=== PATIENT | male | born 1965 | race African-American/Black ===

== ENCOUNTER 2016-12-20 00:50 | Emergency (ER) | payer MEDICAID ==
[~2016-12-20] VITALS: Ht 195.6 cm; Wt 93.0 kg
[2016-12-20 04:35] VITALS: BP 129/79
== END 2016-12-20 04:38 | disposition home or self-care (01) ==
LOC: ER 00:50
DX: M79.674 Pain in right toe(s) (principal); F17.200 Nicotine dependence, unspecified, uncomplicated; F12.10 Cannabis abuse, uncomplicated; I10 Essential (primary) hypertension
CPT/HCPCS: 99283

== ENCOUNTER 2021-05-28 09:04 | Inpatient (IN) | payer MEDICAID, OTHER ==
[~2021-05-28] VITALS: Ht 193 cm; Wt 91.7 kg
[~2021-05-28 09:04] MED LIST: OMEP20CA14 PO
[2021-05-28 10:06] LABS: CHLORIDE 109 mEq/L (98-107)
[2021-05-28 10:07] LABS: CLARITY URINE CLEAR (CLEAR); COLOR URINE YELLOW (YELLOW); KETONES URINE NEGATIVE (NEGATIVE); LEUKOCYTE ESTERASE URINE NEGATIVE (NEGATIVE); NITRITE URINE NEGATIVE (NEGATIVE); OCCULT BLOOD URINE NEGATIVE (NEGATIVE); PH URINE 6.5 (4.5-8.0); PROTEIN URINE 1+ (NEGATIVE)
[2021-05-28 10:09] LABS: BASOPHILS % 0.7 % (0.0-2.0); EOSINOPHILS % 0.9 % (0.0-5.0); HEMATOCRIT. 40.3 % (42.0-52.0); HEMOGLOBIN. 13.9 g/dL (14.0-18.0); MEAN CORPUSCULAR HEMOGLOBIN 28.3 pg (28.0-32.0); MEAN CORPUSCULAR VOLUME 81.9 fL (80.0-94.0); MEAN PLATELET VOLUME 8.9 fl (7.4-10.4); NEUTROPHILS % 71.4 % (40.0-76.0); PLATELET 255 x1000/uL (130-400); RED BLOOD CELL COUNT 4.91 mill/uL (4.7-6.1); RED CELL DISTRIBUTION WIDTH 16.4 % (11.6-14.6)
[2021-05-28] MEDS ORDERED: ASPIRIN 325MG EC TABLET PO NR (11:00)
[2021-05-28] MEDS: FUROSEMIDE 40MG TABLET PO SCH (17:15)
[2021-05-28 17:36] LABS: PROTHROMBIN TIME 10.9 sec (9.6-11.0)
[2021-05-28] MEDS: ENOXAPARIN 80MG/0.8ML SYR SUBCUT SCH (18:20)
[2021-05-28] MEDS ORDERED: IPRATROPIUM/ALBUTEROL 0.5-3(2.5)MG/3ML NEB NEB PRN (19:15)
[2021-05-28] MEDS ORDERED: LORAZEPAM 0.5MG TABLET PO PRN (19:15)
[2021-05-28] MEDS ORDERED: GUAIFENESIN 200MG/10ML SUGAR FREE UDC PO PRN (19:15)
[2021-05-28] MEDS ORDERED: MORPHINE SULFATE 2 MG/ML CPJ (NOT FOR IM USE) IV PRN (19:15)
[2021-05-28] MEDS ORDERED: ACETAMINOPHEN 325MG TABLET PO PRN (19:15)
[2021-05-28] MEDS: PANTOPRAZOLE SODIUM 40 MG/VIAL IV SCH (19:50)
[2021-05-28 21:30] VITALS: BP 146/83
[2021-05-28 22:00] VITALS: BP 146/83
[2021-05-28] MEDS: CARVEDILOL 3.125 MG TABLET PO SCH (22:33)
[2021-05-29] VITALS: BP 156/93
[2021-05-29] MEDS ORDERED: BENA5TAB6 PO (01:54)
[2021-05-29 04:00] VITALS: BP 141/90
[2021-05-29] MEDS: FUROSEMIDE 40MG TABLET PO SCH ×2 (06:38→17:41)
[2021-05-29] MEDS: ENOXAPARIN 80MG/0.8ML SYR SUBCUT SCH (06:38)
[2021-05-29 06:59] LABS: *AMPHETAMINES SCREEN URINE NEGATIVE (NEGATIVE); *BENZODIAZEPINES SCREEN URINE NEGATIVE (NEGATIVE); *COCAINE SCREEN URINE NEGATIVE (NEGATIVE); METHADONE URINE SCREEN NEGATIVE (NEGATIVE); OPIATES URINE SCREEN NEGATIVE (NEGATIVE)
[2021-05-29 07:00] LABS: CANNABINOID URINE SCREEN PRESUMTIVE POSITIVE (NEGATIVE); PHENCYCLIDINE URINE SCREEN NEGATIVE (NEGATIVE)
[2021-05-29 07:34] VITALS: BP 150/88
[2021-05-29] MEDS: PANTOPRAZOLE SODIUM 40 MG/VIAL IV SCH ×2 (08:51→16:24)
[2021-05-29] MEDS: ASPIRIN 81MG TABLET PO SCH (08:52)
[2021-05-29] MEDS: CARVEDILOL 3.125 MG TABLET PO SCH (08:52)
[2021-05-29] MEDS ORDERED: LOSARTAN POTASSIUM 25 MG TABLET PO SCH (09:00)
[2021-05-29] MEDS ORDERED: NITROGLYCERIN OINT 1GM/INCH UDPKT TD PRN (09:45)
[2021-05-29 11:48] VITALS: BP 148/95
[2021-05-29 16:19] VITALS: BP 144/94
[2021-05-29] MEDS ORDERED: ENOXAPARIN 100MG/ML SYR SUBCUT SCH (18:00)
[2021-05-29 18:19] LABS: BASOPHILS % 0.5 % (0.0-2.0); EOSINOPHILS % 0.6 % (0.0-5.0); HEMATOCRIT. 41.5 % (42.0-52.0); HEMOGLOBIN. 14.5 g/dL (14.0-18.0); LYMPHOCYTES % 24.1 % (20.0-50.0); MEAN CORPUSCULAR HEMOGLOBIN 28.4 pg (28.0-32.0); MEAN CORPUSCULAR VOLUME 81.3 fL (80.0-94.0); MONOCYTES % 8.7 % (2.0-8.0); NEUTROPHILS % 66.1 % (40.0-76.0); PLATELET 252 x1000/uL (130-400); RED CELL DISTRIBUTION WIDTH 16.4 % (11.6-14.6)
[2021-05-29 18:56] LABS: CHLORIDE 103 mEq/L (98-107)
[2021-05-29 20:00] VITALS: BP 148/88
[2021-05-29] MEDS: CARVEDILOL 6.25 MG TABLET PO SCH (20:37)
[2021-05-30] VITALS (10 sets, daily range): BP systolic 133–151; BP diastolic 76–92
[2021-05-30 06:58] LABS: BASOPHILS % 0.3 % (0.0-2.0); EOSINOPHILS % 0.5 % (0.0-5.0); HEMATOCRIT. 41.9 % (42.0-52.0); HEMOGLOBIN. 14.6 g/dL (14.0-18.0); LYMPHOCYTES % 22.9 % (20.0-50.0); MEAN CORPUSCULAR HEMOGLOBIN 28.1 pg (28.0-32.0); MEAN CORPUSCULAR VOLUME 80.9 fL (80.0-94.0); MEAN PLATELET VOLUME 8.8 fl (7.4-10.4); MONOCYTES % 10.6 % (2.0-8.0); NEUTROPHILS % 65.7 % (40.0-76.0); PLATELET 274 x1000/uL (130-400); RED BLOOD CELL COUNT 5.18 mill/uL (4.7-6.1)
[2021-05-30] MEDS: FUROSEMIDE 40MG TABLET PO SCH ×2 (07:15→17:39)
[2021-05-30 08:15] LABS: CHLORIDE 105 mEq/L (98-107)
[2021-05-30] MEDS: ASPIRIN 81MG TABLET PO SCH (08:42)
[2021-05-30] MEDS: CARVEDILOL 6.25 MG TABLET PO SCH (08:42)
[2021-05-30] MEDS ORDERED: LOSARTAN POTASSIUM 25 MG TABLET PO SCH (09:00)
[2021-05-30] MEDS: PANTOPRAZOLE SODIUM 40 MG/VIAL IV SCH ×2 (09:00→17:00)
[2021-05-30] MEDS ORDERED: SODIUM CHLORIDE 0.45% 1,000 ML IV ONE (10:00)
[2021-05-30] MEDS ORDERED: IODIXANOL 320MG/ML 100 ML BOTTLE IV ONE (10:29)
[2021-05-30] MEDS ORDERED: LIDOCAINE HCL 1% 30ML VIAL (10MG/ML) ONE (10:29)
[2021-05-30] MEDS ORDERED: MIDAZOLAM HCL 2 MG/2 ML VIAL ONE (10:50)
[2021-05-30] MEDS ORDERED: FENTANYL CITRATE/PF 50MCG/ML 2ML VIAL ONE (10:51)
[2021-05-30] MEDS ORDERED: ACETAMINOPHEN 325MG TABLET PO PRN ×3 (11:30→13:45)
[2021-05-30] MEDS ORDERED: ATROPINE SULFATE 1MG/10ML SYR IV PRN (11:30)
[2021-05-30] MEDS ORDERED: HYDRALAZINE 20MG/ML VIAL ONE (11:34)
[2021-05-30] MEDS ORDERED: ONDANSETRON HCL 4MG/2ML INJ ONE ×2 (11:45→11:49)
[2021-05-30] MEDS ORDERED: ATROPINE SULFATE 0.1MG/ML 10ML DISP.SYRIN ONE (11:47)
[2021-05-30] MEDS ORDERED: NITROGLYCERIN 0.4MG TABLET SL SL PRN (13:45)
[2021-05-30] MEDS ORDERED: NITROGLYCERIN OINT 1GM/INCH UDPKT TD SCH (14:00)
[2021-05-30] MEDS ORDERED: CARVEDILOL 3.125 MG TABLET PO SCH (21:00)
[2021-05-30] MEDS: ATORVASTATIN CALCIUM 10MG TABLET PO SCH (21:08)
[2021-05-30] MEDS: CARVEDILOL 3.125 MG TABLET PO SCH (21:08)
[2021-05-30 22:03] LABS: *BARBITURATES SCREEN URINE NEGATIVE (NEGATIVE)
[2021-05-31] VITALS (12 sets, daily range): BP systolic 115–153; BP diastolic 70–94
[2021-05-31] MEDS: ALLOPURINOL 300 MG TABLET PO SCH ×2 (05:34→21:59)
[2021-05-31] MEDS: FUROSEMIDE 40MG TABLET PO SCH ×2 (06:47→18:04)
[2021-05-31 07:20] LABS: BASOPHILS % 0.2 % (0.0-2.0); EOSINOPHILS % 0.5 % (0.0-5.0); HEMATOCRIT. 42.3 % (42.0-52.0); HEMOGLOBIN. 14.5 g/dL (14.0-18.0); LYMPHOCYTES % 16.8 % (20.0-50.0); MEAN CORPUSCULAR VOLUME 81.7 fL (80.0-94.0); MEAN PLATELET VOLUME 8.9 fl (7.4-10.4); MONOCYTES % 12.6 % (2.0-8.0); NEUTROPHILS % 69.9 % (40.0-76.0); PLATELET 276 x1000/uL (130-400); RED BLOOD CELL COUNT 5.18 mill/uL (4.7-6.1); RED CELL DISTRIBUTION WIDTH 16.4 % (11.6-14.6)
[2021-05-31] MEDS: PANTOPRAZOLE SODIUM 40 MG/VIAL IV SCH ×2 (09:00→17:00)
[2021-05-31] MEDS ORDERED: LOSARTAN POTASSIUM 25 MG TABLET PO SCH (09:00)
[2021-05-31 09:44] LABS: CHLORIDE 106 mEq/L (98-107)
[2021-05-31 09:51] LABS: LDL CHOLESTEROL 132 mg/dL (5-100)
[2021-05-31 09:52] LABS: HDL CHOLESTEROL 36 mg/dL (40-59)
[2021-05-31] MEDS: ASPIRIN 81MG TABLET PO SCH (09:54)
[2021-05-31] MEDS: CARVEDILOL 3.125 MG TABLET PO SCH ×2 (09:55→21:59)
[2021-05-31] MEDS ORDERED: DOCUSATE SODIUM 100MG CAPSULE PO SCH (21:00)
[2021-05-31] MEDS ORDERED: CHLORHEXIDINE GLUCONATE 4% EXTERNAL USE TOP SCH (21:00)
[2021-05-31] MEDS ORDERED: ASCORBIC ACID 500 MG TABLET PO SCH (21:00)
[2021-05-31] MEDS ORDERED: BISACODYL 10MG SUPP PR PRN (21:00)
[2021-05-31] MEDS: ATORVASTATIN CALCIUM 10MG TABLET PO SCH (21:59)
[2021-06-01] VITALS (92 sets, daily range): BP systolic 75–200; BP diastolic 33–97
[2021-06-01] MEDS ORDERED: BLOOD SUGAR DIAGNOSTIC STRIP TEST NR (04:00)
[2021-06-01] MEDS: ALLOPURINOL 300 MG TABLET PO SCH (04:59)
[2021-06-01] MEDS ORDERED: SKIN ADHESIVE 0.7 GM EA TOP ONE (05:34)
[2021-06-01] MEDS ORDERED: THROMBIN (BOVINE) 5000 UNITS/VIAL TOP ONE ×2 (05:34→05:35)
[2021-06-01] MEDS ORDERED: POLYMYXIN B SULFATE 500000 UNITS/VIAL ONE (05:35)
[2021-06-01] MEDS ORDERED: HEPARIN 1000 UNITS/ML 10ML ONE ×2 (05:42→08:43)
[2021-06-01] MEDS ORDERED: CHLORHEXIDINE GLUCONATE 4% EXTERNAL USE TOP SCH (06:00)
[2021-06-01] MEDS ORDERED: INSULIN REGULAR 100U/100ML PMX 100 ML IV NR (06:00)
[2021-06-01] MEDS ORDERED: EPINEPHRINE 5 MG in DEXT 5% WATER 245 ML IV NR (06:00)
[2021-06-01] MEDS ORDERED: DOBUTAMINE 250 MG in DEXT 5% WATER 230 ML IV NR (06:00)
[2021-06-01] MEDS ORDERED: NICARDIPINE 40MG/200ML PREMIX 200 ML IV NR (06:00)
[2021-06-01] MEDS ORDERED: DEL NIDO ELECTROLYTE-S(PH 7.4) 1,000 ML IV NR ×2 (06:00)
[2021-06-01] MEDS ORDERED: NOREPINEPHRINE 8 MG in DEXT 5% WATER 242 ML IV NR (06:00)
[2021-06-01] MEDS ORDERED: DOPAMINE HCL 400 MG in DEXT 5% WATER 240 ML IV NR (06:00)
[2021-06-01] MEDS ORDERED: PAPAVERINE HCL 180MG in SODIUM CHLORIDE 0.9% 24ML IV NR (06:00)
[2021-06-01] MEDS ORDERED: CEFAZOLIN 2,000 MG in DEXT 5% WATER 100 ML IV NR (07:00)
[2021-06-01] MEDS: FUROSEMIDE 40MG TABLET PO SCH ×2 (07:15→17:40)
[2021-06-01] MEDS ORDERED: DEXAMETHASONE 4MG/ML 1ML VIAL ONE (07:21)
[2021-06-01] MEDS ORDERED: ROCURONIUM BROMIDE 10MG/ML VIAL 5ML IV ONE ×2 (07:21→08:42)
[2021-06-01 07:32] LABS: BASOPHILS % 0.5 % (0.0-2.0); EOSINOPHILS % 0.8 % (0.0-5.0); HEMATOCRIT. 44.5 % (42.0-52.0); HEMOGLOBIN. 14.8 g/dL (14.0-18.0); LYMPHOCYTES % 23.5 % (20.0-50.0); MEAN CORPUSCULAR HEMOGLOBIN 27.5 pg (28.0-32.0); MEAN CORPUSCULAR VOLUME 82.8 fL (80.0-94.0); MEAN PLATELET VOLUME 8.7 fl (7.4-10.4); MONOCYTES % 12.8 % (2.0-8.0); NEUTROPHILS % 62.4 % (40.0-76.0); PLATELET 249 x1000/uL (130-400); RED BLOOD CELL COUNT 5.38 mill/uL (4.7-6.1)
[2021-06-01 07:36] LABS: CHLORIDE 106 mEq/L (98-107)
[2021-06-01] MEDS ORDERED: CALCIUM CHLORIDE 1GM/10ML SYR IV ONE ×2 (07:58→08:55)
[2021-06-01] MEDS ORDERED: INSULIN REGULAR (DRIP) 100 UNITS in SODIUM CHLORIDE 0.9% 100 ML IV SCH (08:00)
[2021-06-01] MEDS ORDERED: KCL 10MEQ/50ML PREMIX 150 ML IV PRN (08:00)
[2021-06-01] MEDS ORDERED: DEXTROSE 50% WATER 50ML SYRINGE IV PRN ×2 (08:00)
[2021-06-01] MEDS ORDERED: KCL 10MEQ/50ML PREMIX 200 ML IV PRN (08:00)
[2021-06-01] MEDS ORDERED: HYDROMORPHONE HCL/PF 2MG/ML (OR) ONE (08:07)
[2021-06-01] MEDS ORDERED: INSULIN REGULAR 100U/100ML PMX 100 ML IV SCH (08:15)
[2021-06-01] MEDS ORDERED: MAGNESIUM SULFATE 1G IN DEXT 5% 100ML PREMIX IV ONE (08:27)
[2021-06-01] MEDS ORDERED: POTASSIUM CHLORIDE 10MEQ IN WATER 50ML PREMIX IV ONE (08:27)
[2021-06-01] MEDS ORDERED: ONDANSETRON HCL 4MG/2ML INJ ONE (08:27)
[2021-06-01] MEDS ORDERED: KETOROLAC 30MG/ML VIAL ONE ×2 (08:27→10:09)
[2021-06-01] MEDS ORDERED: MAGNESIUM SULFATE 5GM/10ML VIAL IV ONE (08:38)
[2021-06-01] MEDS ORDERED: HEPARIN 10,000 UNITS/ML VIAL ONE (08:38)
[2021-06-01] MEDS ORDERED: POTASSIUM CHLORIDE 40MEQ/20ML INJ IV ONE (08:38)
[2021-06-01] MEDS ORDERED: DEXMEDETOMIDINE 400 MCG/100 ML 100 ML IV ONE (08:50)
[2021-06-01] MEDS ORDERED: SODIUM BICARBONATE 8.4% 1 MEQ/ML 50ML SYR IV ONE ×2 (08:56→10:06)
[2021-06-01] MEDS ORDERED: PROTAMINE SULFATE 10MG/ML VIAL 25ML IV ONE (09:28)
[2021-06-01] MEDS ORDERED: NEOSTIGMINE METHYLSULFATE 1MG/ML 10 ML VIAL ONE (10:08)
[2021-06-01] MEDS ORDERED: GLYCOPYRROLATE 0.2 MG/ML 2ML VIAL ONE (10:08)
[2021-06-01] MEDS ORDERED: ONDANSETRON HCL 4MG/2ML INJ IV PRN (10:15)
[2021-06-01] MEDS ORDERED: ALBUMIN HUMAN 12.5G/250ML (5%) IV PRN (10:15)
[2021-06-01] MEDS ORDERED: CALCIUM CHLORIDE 3,000 MG in DEXT 5% WATER 250 ML IV PRN (10:15)
[2021-06-01] MEDS ORDERED: ALBUMIN HUMAN 25GM/100ML (25%) IV PRN (10:15)
[2021-06-01] MEDS ORDERED: CALCIUM CHLORIDE 5,000 MG in DEXT 5% WATER 500 ML IV PRN (10:15)
[2021-06-01] MEDS ORDERED: DOPAMINE 400MG/250ML PREMIX 250 ML IV SCH (10:15)
[2021-06-01] MEDS ORDERED: OXYCODONE HCL/ACETAMINOPHEN 5/325MG TABLET PO PRN (10:15)
[2021-06-01] MEDS ORDERED: ACETAMINOPHEN 325MG TABLET PO PRN (10:15)
[2021-06-01] MEDS ORDERED: SODIUM CHLORIDE 0.9% 500 ML IV PRN (10:15)
[2021-06-01] MEDS ORDERED: MAGNESIUM 2 G PREMIX 50 ML IV PRN (10:15)
[2021-06-01] MEDS ORDERED: MAGNESIUM SULFATE 3 GM in DEXT 5% WATER 100 ML IV PRN (10:15)
[2021-06-01] MEDS: MAGNESIUM HYDROXIDE 400MG/5ML 30ML UDC PO SCH ×3 (10:30→21:12)
[2021-06-01] MEDS ORDERED: HYDRALAZINE 20MG/ML VIAL IV SCH (10:30)
[2021-06-01 10:36] LABS: BG BASE EXCESS -2.2 mmol/L (-2.0-2.0); BG CARBOXYHEMOGLOBIN 0.5 % (0.5-1.5); BG DEOXYHEMOGLOBIN 4.1 % (0.0-5.0); BG FRACTION INSPIRED OXYGEN 100; BG METHEMOGLOBIN 0.2 % (0.0-1.5); BG OXYGEN SATURATION 95.9 % (92.0-98.5); BG OXYHEMOGLOBIN 95.2 % (94.0-97.0); BG PCO2 46.3 mmHg (35.0-45.0); BG PH 7.332 (7.350-7.450); BG PO2 86.1 mmHg (75.0-100.0); BG SAMPLE SITE ALINE; BG TOTAL HEMOGLOBIN 14.6 g/dL (12.0-18.0); BG VENT MODE MASK - NRB
[2021-06-01 11:04] LABS: CHLORIDE 114 mEq/L (98-107)
[2021-06-01 11:07] LABS: HEMATOCRIT. 41.3 % (42.0-52.0); HEMOGLOBIN. 13.7 g/dL (14.0-18.0); MEAN CORPUSCULAR HEMOGLOBIN 27.3 pg (28.0-32.0); MEAN CORPUSCULAR VOLUME 82.1 fL (80.0-94.0); MEAN PLATELET VOLUME 8.8 fl (7.4-10.4); PLATELET 293 x1000/uL (130-400); RED BLOOD CELL COUNT 5.03 mill/uL (4.7-6.1); RED CELL DISTRIBUTION WIDTH 16.1 % (11.6-14.6)
[2021-06-01 11:12] LABS: INR 1.1; PROTHROMBIN TIME 11.4 sec (9.6-11.0)
[2021-06-01] MEDS: BLOOD SUGAR DIAGNOSTIC STRIP TEST SCH ×13 (11:38→23:00)
[2021-06-01] MEDS: KETOROLAC 30MG/ML VIAL IV PRN ×2 (11:43→21:13)
[2021-06-01] MEDS: IPRATROPIUM/ALBUTEROL 0.5-3(2.5)MG/3ML NEB HHN SCH ×3 (11:47→20:03)
[2021-06-01] MEDS ORDERED: DEXT 5%/0.45% NACL 1000ML 1,000 ML IV SCH (12:00)
[2021-06-01] MEDS: BACITRACIN 15GM TUBE TOP SCH ×2 (12:00→16:22)
[2021-06-01] MEDS: KCL 10MEQ/50ML PREMIX 100 ML IV PRN ×2 (12:20→13:27)
[2021-06-01] MEDS: FAMOTIDINE 20MG/2ML VIAL IV SCH ×2 (12:28→21:12)
[2021-06-01] MEDS: CEFAZOLIN 1000MG PREMIX 50 ML IV SCH ×2 (12:29→20:40)
[2021-06-01] MEDS: ONDANSETRON HCL 4MG/2ML INJ IV PRN ×2 (13:48→17:39)
[2021-06-01 16:06] LABS: PLATELET ESTIMATE NORMAL
[2021-06-01] MEDS ORDERED: DOCUSATE SODIUM 100MG CAPSULE PO SCH (17:00)
[2021-06-01 17:03] LABS: HEMATOCRIT. 37.8 % (42.0-52.0); HEMOGLOBIN. 12.8 g/dL (14.0-18.0); MEAN CORPUSCULAR HEMOGLOBIN 27.7 pg (28.0-32.0); MEAN CORPUSCULAR VOLUME 81.8 fL (80.0-94.0); MEAN PLATELET VOLUME 8.7 fl (7.4-10.4); PLATELET 293 x1000/uL (130-400); RED BLOOD CELL COUNT 4.62 mill/uL (4.7-6.1); RED CELL DISTRIBUTION WIDTH 16.4 % (11.6-14.6)
[2021-06-01 17:15] LABS: PROTHROMBIN TIME 10.7 sec (9.6-11.0)
[2021-06-01 17:22] LABS: CHLORIDE 109 mEq/L (98-107)
[2021-06-01] MEDS: MAGNESIUM 1 G PREMIX 100 ML IV PRN (17:33)
[2021-06-01] MEDS: OXYCODONE HCL/ACETAMINOPHEN 5/325MG TABLET PO PRN (17:39)
[2021-06-01] MEDS: ASPIRIN 81MG TABLET PO SCH (17:39)
[2021-06-01] MEDS: CLOPIDOGREL 75MG TABLET PO SCH (17:40)
[2021-06-01 17:46] LABS: PLATELET ESTIMATE NORMAL
[2021-06-01] MEDS: ATORVASTATIN CALCIUM 40MG TABLET PO SCH (20:28)
[2021-06-01] MEDS: CARVEDILOL 6.25 MG TABLET PO SCH (20:28)
[2021-06-01] MEDS: MORPHINE SULFATE 2 MG/ML CPJ (NOT FOR IM USE) IV PRN (20:28)
[2021-06-02] VITALS (62 sets, daily range): BP systolic 72–283; BP diastolic 34–177
[2021-06-02] MEDS: IPRATROPIUM/ALBUTEROL 0.5-3(2.5)MG/3ML NEB HHN SCH ×6 (00:05→21:27)
[2021-06-02 00:27] LABS: HEMATOCRIT 33.8 % (42.0-52.0); HEMOGLOBIN 11.5 g/dL (14.0-18.0); MEAN CORPUSCULAR HEMOGLOBIN 28.1 pg (28.0-32.0); MEAN CORPUSCULAR VOLUME 82.3 fL (80.0-94.0); PLATELET 276 x1000/uL (130-400)
[2021-06-02 00:36] LABS: CHLORIDE 108 mEq/L (98-107)
[2021-06-02] MEDS: MAGNESIUM HYDROXIDE 400MG/5ML 30ML UDC PO SCH ×3 (00:49→09:43)
[2021-06-02] MEDS: OXYCODONE HCL/ACETAMINOPHEN 5/325MG TABLET PO PRN (00:50)
[2021-06-02] MEDS: KCL 10MEQ/50ML PREMIX 100 ML IV PRN ×2 (00:56→07:18)
[2021-06-02] MEDS: BLOOD SUGAR DIAGNOSTIC STRIP TEST SCH ×9 (01:00→08:05)
[2021-06-02] MEDS: MAGNESIUM 1 G PREMIX 100 ML IV PRN (01:02)
[2021-06-02] MEDS: MORPHINE SULFATE 2 MG/ML CPJ (NOT FOR IM USE) IV PRN ×4 (03:20→21:10)
[2021-06-02] MEDS: CEFAZOLIN 1000MG PREMIX 50 ML IV SCH ×2 (04:11→12:21)
[2021-06-02 06:15] LABS: HEMATOCRIT. 32.1 % (42.0-52.0); HEMOGLOBIN. 10.9 g/dL (14.0-18.0); MEAN CORPUSCULAR HEMOGLOBIN 27.6 pg (28.0-32.0); MEAN CORPUSCULAR VOLUME 81.7 fL (80.0-94.0); MEAN PLATELET VOLUME 9.1 fl (7.4-10.4); PLATELET 244 x1000/uL (130-400); RED BLOOD CELL COUNT 3.93 mill/uL (4.7-6.1); RED CELL DISTRIBUTION WIDTH 16.1 % (11.6-14.6)
[2021-06-02 06:30] LABS: CHLORIDE 106 mEq/L (98-107)
[2021-06-02] MEDS: FUROSEMIDE 40MG TABLET PO SCH (07:19)
[2021-06-02 08:12] LABS: PLATELET ESTIMATE NORMAL
[2021-06-02] MEDS ORDERED: DIPHENHYDRAMINE 25MG CAPSULE PO PRN (08:45)
[2021-06-02] MEDS ORDERED: TRAMADOL HCL/ACETAMINOPHEN 37.5/325MG TABLET PO PRN (08:45)
[2021-06-02] MEDS ORDERED: DIPHENHYDRAMINE 50MG CAPSULE PO PRN (08:49)
[2021-06-02] MEDS: BACITRACIN 15GM TUBE TOP SCH ×2 (09:00→16:36)
[2021-06-02] MEDS: CARVEDILOL 6.25 MG TABLET PO SCH ×2 (09:00→21:10)
[2021-06-02] MEDS ORDERED: LOSARTAN POTASSIUM 50 MG TABLET PO SCH (09:00)
[2021-06-02 09:32] LABS: BASOPHILS % 0.3 % (0.0-2.0); HEMATOCRIT. 36.1 % (42.0-52.0); HEMOGLOBIN. 12.1 g/dL (14.0-18.0); LYMPHOCYTES % 7.8 % (20.0-50.0); MEAN CORPUSCULAR HEMOGLOBIN 27.5 pg (28.0-32.0); MEAN CORPUSCULAR VOLUME 81.9 fL (80.0-94.0); MEAN PLATELET VOLUME 8.9 fl (7.4-10.4); MONOCYTES % 14.9 % (2.0-8.0); PLATELET 272 x1000/uL (130-400); RED BLOOD CELL COUNT 4.41 mill/uL (4.7-6.1); RED CELL DISTRIBUTION WIDTH 16.5 % (11.6-14.6)
[2021-06-02 09:41] LABS: CHLORIDE 106 mEq/L (98-107)
[2021-06-02] MEDS: FAMOTIDINE 20MG TABLET PO SCH ×2 (09:44→21:10)
[2021-06-02] MEDS: CLOPIDOGREL 75MG TABLET PO SCH (09:44)
[2021-06-02] MEDS: DOCUSATE SODIUM 250MG CAPSULE PO SCH ×2 (09:44→16:17)
[2021-06-02] MEDS: ASPIRIN 81MG TABLET PO SCH (09:44)
[2021-06-02] MEDS ORDERED: NALOXONE HCL 0.4MG/ML VIAL IV PRN (10:00)
[2021-06-02] MEDS: PIPERACILLIN/TAZOBACTAM 3.375G in DEXT 5% WATER 50ML IV SCH ×2 (16:32→22:16)
[2021-06-02] MEDS ORDERED: CLOPIDOGREL 75MG TABLET PO SCH (17:00)
[2021-06-02] MEDS ORDERED: PIPERACILLIN/TAZOBACTAM 3.375 G in DEXTROSE 5% WATER 50 ML IV SCH (18:00)
[2021-06-02] MEDS: ATORVASTATIN CALCIUM 40MG TABLET PO SCH (21:10)
[2021-06-03] VITALS (16 sets, daily range): BP systolic 100–147; BP diastolic 61–99
[2021-06-03] MEDS: IPRATROPIUM/ALBUTEROL 0.5-3(2.5)MG/3ML NEB HHN SCH ×5 (01:15→20:59)
[2021-06-03] MEDS: MORPHINE SULFATE 2 MG/ML CPJ (NOT FOR IM USE) IV PRN ×5 (01:16→20:11)
[2021-06-03] MEDS: PIPERACILLIN/TAZOBACTAM 3.375G in DEXT 5% WATER 50ML IV SCH ×3 (05:33→21:17)
[2021-06-03 06:20] LABS: CHLORIDE 106 mEq/L (98-107)
[2021-06-03 06:42] LABS: BASOPHILS % 0.1 % (0.0-2.0); HEMATOCRIT. 33.4 % (42.0-52.0); HEMOGLOBIN. 11.2 g/dL (14.0-18.0); LYMPHOCYTES % 8.2 % (20.0-50.0); MEAN CORPUSCULAR VOLUME 83.5 fL (80.0-94.0); MEAN PLATELET VOLUME 9.3 fl (7.4-10.4); NEUTROPHILS % 78.7 % (40.0-76.0); PLATELET 241 x1000/uL (130-400); RED CELL DISTRIBUTION WIDTH 16.8 % (11.6-14.6)
[2021-06-03] MEDS ORDERED: FUROSEMIDE 40MG/4ML VIAL IVP SCH (07:00)
[2021-06-03] MEDS: ASPIRIN 81MG TABLET PO SCH (08:48)
[2021-06-03] MEDS: DOCUSATE SODIUM 250MG CAPSULE PO SCH ×2 (08:48→17:00)
[2021-06-03] MEDS: CARVEDILOL 12.5MG TABLET PO SCH ×2 (08:50→20:10)
[2021-06-03] MEDS: CLOPIDOGREL 75MG TABLET PO SCH (08:50)
[2021-06-03] MEDS: BACITRACIN 15GM TUBE TOP SCH ×2 (08:50→17:00)
[2021-06-03] MEDS: FAMOTIDINE 20MG TABLET PO SCH ×2 (09:00→20:09)
[2021-06-03] MEDS ORDERED: LACTULOSE 20G/30ML UDC PO SCH (17:00)
[2021-06-03] MEDS: ATORVASTATIN CALCIUM 40MG TABLET PO SCH (20:09)
[2021-06-04] VITALS (12 sets, daily range): BP systolic 107–144; BP diastolic 65–91
[2021-06-04] MEDS: IPRATROPIUM/ALBUTEROL 0.5-3(2.5)MG/3ML NEB HHN SCH ×6 (04:00→20:09)
[2021-06-04] MEDS: PIPERACILLIN/TAZOBACTAM 3.375G in DEXT 5% WATER 50ML IV SCH ×3 (06:18→22:50)
[2021-06-04 07:26] LABS: CHLORIDE 107 mEq/L (98-107)
[2021-06-04 07:34] LABS: BASOPHILS % 0.2 % (0.0-2.0); EOSINOPHILS % 0.6 % (0.0-5.0); HEMOGLOBIN. 10.7 g/dL (14.0-18.0); LYMPHOCYTES % 11.4 % (20.0-50.0); MEAN CORPUSCULAR HEMOGLOBIN 27.6 pg (28.0-32.0); MEAN CORPUSCULAR VOLUME 82.9 fL (80.0-94.0); MEAN PLATELET VOLUME 9.2 fl (7.4-10.4); MONOCYTES % 11.8 % (2.0-8.0); PLATELET 234 x1000/uL (130-400); RED BLOOD CELL COUNT 3.86 mill/uL (4.7-6.1); RED CELL DISTRIBUTION WIDTH 16.2 % (11.6-14.6)
[2021-06-04] MEDS: BACITRACIN 15GM TUBE TOP SCH ×2 (09:00→17:00)
[2021-06-04] MEDS: CLOPIDOGREL 75MG TABLET PO SCH (09:22)
[2021-06-04] MEDS: FAMOTIDINE 20MG TABLET PO SCH ×2 (09:23→20:56)
[2021-06-04] MEDS: DOCUSATE SODIUM 250MG CAPSULE PO SCH ×2 (09:23→17:00)
[2021-06-04] MEDS: ASPIRIN 81MG TABLET PO SCH (09:23)
[2021-06-04] MEDS: CARVEDILOL 12.5MG TABLET PO SCH ×2 (09:23→20:56)
[2021-06-04] MEDS ORDERED: FUROSEMIDE 40MG/4ML VIAL IVP NR (11:15)
[2021-06-04] MEDS: MORPHINE SULFATE 2 MG/ML CPJ (NOT FOR IM USE) IV PRN (12:43)
[2021-06-04] MEDS ORDERED: NALOXONE HCL 0.4MG/ML VIAL IV PRN (16:30)
[2021-06-04] MEDS: ATORVASTATIN CALCIUM 40MG TABLET PO SCH (20:55)
[2021-06-05] VITALS (12 sets, daily range): BP systolic 97–124; BP diastolic 58–79
[2021-06-05] MEDS: IPRATROPIUM/ALBUTEROL 0.5-3(2.5)MG/3ML NEB HHN SCH ×6 (04:36→20:40)
[2021-06-05] MEDS: PIPERACILLIN/TAZOBACTAM 3.375G in DEXT 5% WATER 50ML IV SCH ×3 (05:46→21:07)
[2021-06-05] MEDS: BACITRACIN 15GM TUBE TOP SCH ×2 (09:00→16:01)
[2021-06-05] MEDS: DOCUSATE SODIUM 250MG CAPSULE PO SCH ×2 (09:00→17:49)
[2021-06-05] MEDS: CLOPIDOGREL 75MG TABLET PO SCH (09:32)
[2021-06-05] MEDS: CARVEDILOL 12.5MG TABLET PO SCH ×2 (09:32→21:06)
[2021-06-05] MEDS: ASPIRIN 81MG TABLET PO SCH (09:32)
[2021-06-05] MEDS: FAMOTIDINE 20MG TABLET PO SCH ×2 (09:32→21:06)
[2021-06-05] MEDS: ATORVASTATIN CALCIUM 40MG TABLET PO SCH (21:06)
[2021-06-06] VITALS (12 sets, daily range): BP systolic 100–156; BP diastolic 64–78
[2021-06-06] MEDS: IPRATROPIUM/ALBUTEROL 0.5-3(2.5)MG/3ML NEB HHN SCH ×6 (04:50→19:59)
[2021-06-06] MEDS: PIPERACILLIN/TAZOBACTAM 3.375G in DEXT 5% WATER 50ML IV SCH ×3 (05:42→23:18)
[2021-06-06] MEDS: DOCUSATE SODIUM 250MG CAPSULE PO SCH ×2 (08:07→16:45)
[2021-06-06] MEDS: CLOPIDOGREL 75MG TABLET PO SCH (08:07)
[2021-06-06] MEDS: ASPIRIN 81MG TABLET PO SCH (08:07)
[2021-06-06] MEDS: CARVEDILOL 12.5MG TABLET PO SCH ×2 (08:07→21:14)
[2021-06-06] MEDS: FAMOTIDINE 20MG TABLET PO SCH ×2 (08:08→21:14)
[2021-06-06] MEDS: BACITRACIN 15GM TUBE TOP SCH ×2 (08:08→16:45)
[2021-06-06] MEDS ORDERED: FUROSEMIDE 40MG TABLET PO NR (15:30)
[2021-06-06] MEDS: ATORVASTATIN CALCIUM 40MG TABLET PO SCH (21:14)
[2021-06-07] VITALS (12 sets, daily range): BP systolic 108–149; BP diastolic 64–80
[2021-06-07] MEDS: IPRATROPIUM/ALBUTEROL 0.5-3(2.5)MG/3ML NEB HHN SCH ×6 (00:21→23:14)
[2021-06-07] MEDS: PIPERACILLIN/TAZOBACTAM 3.375G in DEXT 5% WATER 50ML IV SCH (06:11)
[2021-06-07 06:38] LABS: BASOPHILS % 0.5 % (0.0-2.0); EOSINOPHILS % 1.2 % (0.0-5.0); HEMATOCRIT. 29.5 % (42.0-52.0); MEAN CORPUSCULAR VOLUME 83.2 fL (80.0-94.0); MEAN PLATELET VOLUME 8.5 fl (7.4-10.4); MONOCYTES % 12.1 % (2.0-8.0); NEUTROPHILS % 70.2 % (40.0-76.0); PLATELET 383 x1000/uL (130-400); RED BLOOD CELL COUNT 3.55 mill/uL (4.7-6.1); RED CELL DISTRIBUTION WIDTH 16.1 % (11.6-14.6)
[2021-06-07 07:00] LABS: CHLORIDE 109 mEq/L (98-107)
[2021-06-07] MEDS: CLOPIDOGREL 75MG TABLET PO SCH (08:18)
[2021-06-07] MEDS: FAMOTIDINE 20MG TABLET PO SCH ×2 (08:18→20:24)
[2021-06-07] MEDS: ASPIRIN 81MG TABLET PO SCH (08:18)
[2021-06-07] MEDS: FUROSEMIDE 40MG TABLET PO SCH (08:18)
[2021-06-07] MEDS: CARVEDILOL 12.5MG TABLET PO SCH ×2 (08:18→20:25)
[2021-06-07] MEDS: DOCUSATE SODIUM 250MG CAPSULE PO SCH ×2 (08:19→17:00)
[2021-06-07] MEDS: BACITRACIN 15GM TUBE TOP SCH ×2 (08:19→17:02)
[2021-06-07] MEDS: BENAZEPRIL 5MG TABLET PO SCH (09:00)
[2021-06-07] MEDS: QUETIAPINE FUMARATE 25MG TABLET PO SCH (09:43)
[2021-06-07] MEDS: LEVOFLOXACIN 500MG TABLET PO SCH (10:50)
[2021-06-07] MEDS: ATORVASTATIN CALCIUM 40MG TABLET PO SCH (20:24)
[2021-06-08] VITALS (12 sets, daily range): BP systolic 112–134; BP diastolic 63–84
[2021-06-08] MEDS: IPRATROPIUM/ALBUTEROL 0.5-3(2.5)MG/3ML NEB HHN SCH ×5 (00:05→20:07)
[2021-06-08 07:15] LABS: BASOPHILS % 0.3 % (0.0-2.0); EOSINOPHILS % 1.1 % (0.0-5.0); HEMATOCRIT. 30.2 % (42.0-52.0); HEMOGLOBIN. 10.1 g/dL (14.0-18.0); LYMPHOCYTES % 15.2 % (20.0-50.0); MEAN CORPUSCULAR HEMOGLOBIN 27.8 pg (28.0-32.0); MEAN CORPUSCULAR VOLUME 83.2 fL (80.0-94.0); MEAN PLATELET VOLUME 8.2 fl (7.4-10.4); MONOCYTES % 10.9 % (2.0-8.0); NEUTROPHILS % 72.5 % (40.0-76.0); PLATELET 457 x1000/uL (130-400); RED BLOOD CELL COUNT 3.63 mill/uL (4.7-6.1); RED CELL DISTRIBUTION WIDTH 15.7 % (11.6-14.6)
[2021-06-08 07:21] LABS: CHLORIDE 112 mEq/L (98-107)
[2021-06-08] MEDS: QUETIAPINE FUMARATE 25MG TABLET PO SCH (07:50)
[2021-06-08] MEDS: CARVEDILOL 12.5MG TABLET PO SCH ×2 (07:50→21:06)
[2021-06-08] MEDS: ASPIRIN 81MG TABLET PO SCH (07:50)
[2021-06-08] MEDS: FUROSEMIDE 40MG TABLET PO SCH (07:50)
[2021-06-08] MEDS: CLOPIDOGREL 75MG TABLET PO SCH (07:50)
[2021-06-08] MEDS: FAMOTIDINE 20MG TABLET PO SCH ×2 (07:50→21:06)
[2021-06-08] MEDS: BACITRACIN 15GM TUBE TOP SCH ×2 (09:00→17:54)
[2021-06-08] MEDS: BENAZEPRIL 5MG TABLET PO SCH (09:00)
[2021-06-08] MEDS: DOCUSATE SODIUM 250MG CAPSULE PO SCH ×2 (09:00→17:00)
[2021-06-08] MEDS: LEVOFLOXACIN 500MG TABLET PO SCH (11:38)
[2021-06-08] MEDS: ATORVASTATIN CALCIUM 40MG TABLET PO SCH (21:06)
[2021-06-09] VITALS (12 sets, daily range): BP systolic 114–138; BP diastolic 68–83
[2021-06-09] MEDS: IPRATROPIUM/ALBUTEROL 0.5-3(2.5)MG/3ML NEB HHN SCH ×6 (00:12→20:00)
[2021-06-09 06:11] LABS: BASOPHILS % 0.5 % (0.0-2.0); HEMATOCRIT. 29.6 % (42.0-52.0); LYMPHOCYTES % 13.6 % (20.0-50.0); MEAN CORPUSCULAR VOLUME 82.9 fL (80.0-94.0); MEAN PLATELET VOLUME 8.3 fl (7.4-10.4); MONOCYTES % 9.1 % (2.0-8.0); NEUTROPHILS % 74.8 % (40.0-76.0); PLATELET 438 x1000/uL (130-400); RED BLOOD CELL COUNT 3.57 mill/uL (4.7-6.1); RED CELL DISTRIBUTION WIDTH 15.9 % (11.6-14.6)
[2021-06-09 06:34] LABS: CHLORIDE 114 mEq/L (98-107)
[2021-06-09] MEDS: BACITRACIN 15GM TUBE TOP SCH ×2 (08:09→18:43)
[2021-06-09] MEDS: CARVEDILOL 12.5MG TABLET PO SCH ×2 (08:09→20:52)
[2021-06-09] MEDS: QUETIAPINE FUMARATE 25MG TABLET PO SCH (08:09)
[2021-06-09] MEDS: CLOPIDOGREL 75MG TABLET PO SCH (08:09)
[2021-06-09] MEDS: ASPIRIN 81MG TABLET PO SCH (08:10)
[2021-06-09] MEDS: DOCUSATE SODIUM 250MG CAPSULE PO SCH ×2 (08:10→17:00)
[2021-06-09] MEDS: FUROSEMIDE 40MG TABLET PO SCH (08:10)
[2021-06-09] MEDS: BENAZEPRIL 5MG TABLET PO SCH (08:10)
[2021-06-09] MEDS: FAMOTIDINE 20MG TABLET PO SCH ×2 (08:10→20:51)
[2021-06-09] MEDS: LEVOFLOXACIN 500MG TABLET PO SCH (11:22)
[2021-06-09] MEDS: ATORVASTATIN CALCIUM 40MG TABLET PO SCH (20:51)
== END 2021-06-09 21:45 | DRG 165 ==
LOC: ER 09:04 → 6WST 12:51 → EDBEDREQ 13:03 → EDBEDREQTM 13:03 → ENRESERV 20:05 → 3WST 05-30 12:21 → CVICU 06-01 08:26 → 3WST 06-02 13:29
PROVIDERS: ADMIT Internal Medicine; ATTEND Internal Medicine
PROC: 4A023N7 Measurement of Cardiac Sampling and Pressure, Left Heart, Percutaneous Approach (ICD-10-PCS; 2021-05-30)
PROC: B2111ZZ Fluoroscopy of Multiple Coronary Arteries using Low Osmolar Contrast (ICD-10-PCS; 2021-05-30)
PROC: 021209W Bypass Coronary Artery, Three Arteries from Aorta with Autologous Venous Tissue, Open Approach (ICD-10-PCS; principal; 2021-06-01)
PROC: 02100Z9 Bypass Coronary Artery, One Artery from Left Internal Mammary, Open Approach (ICD-10-PCS; 2021-06-01)
PROC: 5A1221Z Performance of Cardiac Output, Continuous (ICD-10-PCS; 2021-06-01)
PROC: 06BQ4ZZ Excision of Left Saphenous Vein, Percutaneous Endoscopic Approach (ICD-10-PCS; 2021-06-01)
DX: I21.4 Non-ST elevation (NSTEMI) myocardial infarction (principal); I50.23 Acute on chronic systolic (congestive) heart failure; I25.110 Atherosclerotic heart disease of native coronary artery with unstable angina pectoris; G81.94 Hemiplegia, unspecified affecting left nondominant side; I25.5 Ischemic cardiomyopathy; Z20.822 Contact with and (suspected) exposure to COVID-19; D64.9 Anemia, unspecified; R53.81 Other malaise; E78.5 Hyperlipidemia, unspecified; F32.A Depression, unspecified; F41.9 Anxiety disorder, unspecified; Z96.649 Presence of unspecified artificial hip joint; R47.1 Dysarthria and anarthria; I11.0 Hypertensive heart disease with heart failure; Z79.899 Other long term (current) drug therapy; Z85.46 Personal history of malignant neoplasm of prostate; Z82.49 Family history of ischemic heart disease and other diseases of the circulatory system; Z95.5 Presence of coronary angioplasty implant and graft; Z91.19 Patient's noncompliance with other medical treatment and regimen; Z91.14 Patient's other noncompliance with medication regimen; Z72.0 Tobacco use
CPT/HCPCS: 36415; 36600; 71045; 71275; 80048; 80053; 80061; 80305; 81003; 82375; 82805; 82962; 83735; 83880; 84132; 84145; 84484; 85025; 85027; 85347; 86850; 86900; 86920; 87426; 92523; 92610; 93005; 93306; 93458; 93880; 93970; 94640; 97110; 97116; 97162; 97166; 97530; 97535; 99285; C1729; C1751; C1758; C1760; C1769; C1887; C1893; C9113; J0360; J0461; J0690; J1100; J1170; J1250; J1265; J1644; J1650; J1815; J1885; J1940; J2250; J2270; J2405; J2440; J2543; J2710; J2720; J3010; J3475; J3480; J3490; J7060; L3908; P9047; Q9957; Q9967

== ENCOUNTER 2022-03-30 12:06 | Emergency (ER) | payer MEDICAID, OTHER ==
[~2022-03-30] VITALS: Ht 193 cm; Wt 93.0 kg
[~2022-03-30 12:06] MED LIST changes: +BENA5TAB40 PO
[2022-03-30 12:33] VITALS: BP 147/95
[2022-03-30] MEDS ORDERED: ACETAMINOPHEN 325MG TABLET PO STA (14:33)
[2022-03-30] MEDS ORDERED: LIDOCAINE HCL/PF 1% 10 MG/ML 5ML VIAL INFIL ONE (14:45)
[2022-03-30] MEDS ORDERED: BACITRACIN ZINC OINT UDPKT TOP ONE (14:45)
[2022-03-30] MEDS ORDERED: CEPH500C2 MT (15:42)
[2022-03-30] MEDS ORDERED: SULF1TAB48 MT (15:42)
[2022-03-30] MEDS ORDERED: ACET-2708 PO (15:42)
== END 2022-03-30 16:02 | disposition home or self-care (01) ==
LOC: ER 12:06
DX: L03.011 Cellulitis of right finger (principal); I10 Essential (primary) hypertension; I25.2 Old myocardial infarction; Z95.1 Presence of aortocoronary bypass graft; Z96.649 Presence of unspecified artificial hip joint
CPT/HCPCS: 10060; 99283; J3490; Z7610